=== PATIENT | female | born 1975 | race Caucasian/White ===

== ENCOUNTER 2021-08-01 13:49 | Inpatient (IN) | payer MEDICAID ==
[~2021-08-01] VITALS: Ht 154.9 cm; Wt 68.0 kg
[2021-08-01 15:09] LABS: EOSINOPHILS % 3.6 % (0.0-5.0); HEMATOCRIT. 21.9 % (36.0-48.0); HEMOGLOBIN. 7.1 g/dL (12.0-16.0); LYMPHOCYTES % 19.9 % (20.0-50.0); MEAN CORPUSCULAR HEMOGLOBIN 30.2 pg (28.0-32.0); MEAN CORPUSCULAR VOLUME 92.9 fL (81.0-99.0); MEAN PLATELET VOLUME 6.8 fl (7.4-10.4); MONOCYTES % 8.3 % (2.0-8.0); NEUTROPHILS % 67.2 % (40.0-76.0); PLATELET 285 x1000/uL (130-400); RED BLOOD CELL COUNT 2.36 mill/uL (4.2-5.4); RED CELL DISTRIBUTION WIDTH 17.2 % (11.6-14.6)
[2021-08-01 15:19] LABS: CHLORIDE 120 mEq/L (98-107)
[2021-08-01 15:29] LABS: ETHANOL BLOOD < 10 mg/dL
[2021-08-01] MEDS ORDERED: AMLODIPINE 10MG TABLET PO SCH (15:30)
[2021-08-01] MEDS: FUROSEMIDE 40MG/4ML VIAL IVP SCH (15:39)
[2021-08-01] MEDS ORDERED: LORAZEPAM 2MG/ML CPJ IV NR (15:45)
[2021-08-01] MEDS ORDERED: NIFEDIPINE XL 60MG TAB PO NR (18:15)
[2021-08-01] MEDS: LORAZEPAM 2MG/ML CPJ IV PRN (18:15)
[2021-08-01] MEDS ORDERED: EPOETIN ALFA 4000UNITS/ML VIAL SUBCUT NR (21:00)
[2021-08-01 22:25] VITALS: BP 148/107
[2021-08-01] MEDS: SEVELAMER CARBONATE 800 MG TABLET PO SCH (22:34)
[2021-08-01] MEDS: HYDROCODONE/ACETAMINOPHEN 5/325MG TABLET PO PRN (22:34)
[2021-08-01] MEDS: AMLODIPINE 10MG TABLET PO SCH (22:35)
[2021-08-02] VITALS: BP 120/83
[2021-08-02 00:28] LABS: EOSINOPHILS % 1.5 % (0.0-5.0); HEMATOCRIT. 22.8 % (36.0-48.0); HEMOGLOBIN. 7.5 g/dL (12.0-16.0); LYMPHOCYTES % 19.3 % (20.0-50.0); MONOCYTES % 7.7 % (2.0-8.0); NEUTROPHILS % 70.5 % (40.0-76.0); PLATELET 318 x1000/uL (130-400); RED BLOOD CELL COUNT 2.51 mill/uL (4.2-5.4); RED CELL DISTRIBUTION WIDTH 16.9 % (11.6-14.6)
[2021-08-02] MEDS ORDERED: IPRATROPIUM/ALBUTEROL 0.5-3(2.5)MG/3ML NEB HHN PRN (00:45)
[2021-08-02 01:29] LABS: BG BASE EXCESS -3.4 mmol/L (-2.0-2.0); BG CARBOXYHEMOGLOBIN 0.6 % (0.5-1.5); BG DEOXYHEMOGLOBIN 9.3 % (0.0-5.0); BG FRACTION INSPIRED OXYGEN 40; BG METHEMOGLOBIN 0.1 % (0.0-1.5); BG OXYGEN SATURATION 90.6 % (92.0-98.5); BG PCO2 41.3 mmHg (35.0-45.0); BG PH 7.345 (7.350-7.450); BG PO2 65.8 mmHg (75.0-100.0); BG SAMPLE SITE RIGHT RADIAL; BG TOTAL HEMOGLOBIN 8.4 g/dL (12.0-18.0); BG VENT MODE NASAL CANNULA
[2021-08-02 04:00] VITALS: BP 158/90
[2021-08-02] MEDS: SEVELAMER CARBONATE 800 MG TABLET PO SCH ×4 (05:55→22:06)
[2021-08-02 06:12] LABS: BASOPHILS % 0.8 % (0.0-2.0); EOSINOPHILS % 0.5 % (0.0-5.0); HEMATOCRIT. 23.6 % (36.0-48.0); HEMOGLOBIN. 7.6 g/dL (12.0-16.0); LYMPHOCYTES % 22.2 % (20.0-50.0); MEAN CORPUSCULAR HEMOGLOBIN 29.5 pg (28.0-32.0); MEAN CORPUSCULAR VOLUME 91.2 fL (81.0-99.0); MEAN PLATELET VOLUME 6.9 fl (7.4-10.4); MONOCYTES % 8.5 % (2.0-8.0); PLATELET 270 x1000/uL (130-400); RED BLOOD CELL COUNT 2.59 mill/uL (4.2-5.4); RED CELL DISTRIBUTION WIDTH 17.2 % (11.6-14.6)
[2021-08-02 06:45] LABS: PHOSPHORUS 4.9 mg/dL (2.5-4.9)
[2021-08-02] MEDS: LOSARTAN POTASSIUM 50 MG TABLET PO SCH (08:11)
[2021-08-02] MEDS: FOLIC ACID/VITAMIN B COMP W-C TABLET PO SCH (08:11)
[2021-08-02] MEDS: FUROSEMIDE 40MG/4ML VIAL IVP SCH (08:12)
[2021-08-02] MEDS: AMLODIPINE 10MG TABLET PO SCH (08:12)
[2021-08-02] MEDS: HYDROCODONE/ACETAMINOPHEN 5/325MG TABLET PO PRN ×3 (08:17→18:39)
[2021-08-02 08:22] VITALS: BP 167/108
[2021-08-02] MEDS: LORAZEPAM 2MG/ML CPJ IV PRN ×3 (08:23→20:36)
[2021-08-02] MEDS ORDERED: NIFEDIPINE XL 60MG TAB PO SCH (09:00)
[2021-08-02 12:00] VITALS: BP 134/84
[2021-08-02 15:42] LABS: TOTAL IRON BINDING CAPACITY 175 ug/dL (250-450)
[2021-08-02 16:00] VITALS: BP 129/77
[2021-08-02 20:00] VITALS: BP 153/83
[2021-08-02] MEDS: IRON SUCROSE COMPLEX 100 MG/5 ML ML IV SCH (22:06)
[2021-08-02] MEDS ORDERED: EPOETIN ALFA-EPBX 4,000 UNIT/ML VIAL SUBCUT NR (23:00)
[2021-08-03] VITALS: BP 153/83
[2021-08-03] MEDS: HYDROCODONE/ACETAMINOPHEN 5/325MG TABLET PO PRN ×4 (01:03→21:56)
[2021-08-03] MEDS: LORAZEPAM 2MG/ML CPJ IV PRN ×3 (03:24→19:01)
[2021-08-03 04:00] VITALS: BP 130/81
[2021-08-03] MEDS: SEVELAMER CARBONATE 800 MG TABLET PO SCH ×3 (06:06→21:59)
[2021-08-03 08:14] VITALS: BP 131/89
[2021-08-03] MEDS: FOLIC ACID/VITAMIN B COMP W-C TABLET PO SCH (08:37)
[2021-08-03] MEDS: NIFEDIPINE XL 60MG TAB PO SCH (08:38)
[2021-08-03] MEDS: FUROSEMIDE 40MG/4ML VIAL IVP SCH (08:38)
[2021-08-03] MEDS: LOSARTAN POTASSIUM 50 MG TABLET PO SCH (08:38)
[2021-08-03] MEDS ORDERED: LORAZEPAM 0.5MG TABLET PO NR (09:45)
[2021-08-03 12:00] VITALS: BP 157/102
[2021-08-03] MEDS ORDERED: CLONIDINE 0.1MG TABLET PO PRN ×2 (13:45→20:00)
[2021-08-03] MEDS ORDERED: DIPHENOXYLATE/ATROPINE 2.5/0.025MG TABLET PO PRN (15:00)
[2021-08-03] MEDS ORDERED: NALOXONE HCL 0.4MG/ML VIAL IV PRN (15:15)
[2021-08-03 16:00] VITALS: BP 164/71
[2021-08-03 16:27] LABS: BASOPHILS % 0.5 % (0.0-2.0); EOSINOPHILS % 4.1 % (0.0-5.0); HEMATOCRIT. 24.9 % (36.0-48.0); HEMOGLOBIN. 7.8 g/dL (12.0-16.0); MEAN CORPUSCULAR HEMOGLOBIN 29.4 pg (28.0-32.0); MEAN CORPUSCULAR VOLUME 94.2 fL (81.0-99.0); MEAN PLATELET VOLUME 7.5 fl (7.4-10.4); MONOCYTES % 5.9 % (2.0-8.0); NEUTROPHILS % 62.5 % (40.0-76.0); PLATELET 116 x1000/uL (130-400); RED BLOOD CELL COUNT 2.64 mill/uL (4.2-5.4); RED CELL DISTRIBUTION WIDTH 17.6 % (11.6-14.6)
[2021-08-03] MEDS ORDERED: LORAZEPAM 0.5MG TABLET PO PRN (19:30)
[2021-08-03] MEDS ORDERED: LORAZEPAM 1MG TABLET PO PRN (19:30)
[2021-08-03 20:00] VITALS: BP 163/94
[2021-08-03] MEDS ORDERED: EPOETIN ALFA-EPBX 4,000 UNIT/ML VIAL SUBCUT NR (21:00)
[2021-08-03] MEDS ORDERED: NON FORMULARY PATIENT HOME MED XX SCH (21:15)
[2021-08-03] MEDS ORDERED: QUET100T MT (21:16)
[2021-08-03] MEDS ORDERED: QUETIAPINE FUMARATE 50MG TABLET PO SCH (21:30)
[2021-08-03] MEDS: IRON SUCROSE COMPLEX 100 MG/5 ML ML IV SCH (21:58)
[2021-08-03] MEDS: LORAZEPAM 1MG TABLET PO PRN (23:06)
[2021-08-04] MEDS: LORAZEPAM 1MG TABLET PO PRN ×2 (03:49→08:30)
[2021-08-04] MEDS: SEVELAMER CARBONATE 800 MG TABLET PO SCH (06:11)
[2021-08-04] MEDS: NIFEDIPINE XL 60MG TAB PO SCH (07:38)
[2021-08-04] MEDS: FUROSEMIDE 40MG/4ML VIAL IVP SCH (07:38)
[2021-08-04] MEDS: LOSARTAN POTASSIUM 50 MG TABLET PO SCH (07:38)
[2021-08-04] MEDS: FOLIC ACID/VITAMIN B COMP W-C TABLET PO SCH (07:38)
[2021-08-04 08:06] VITALS: BP 181/120
[2021-08-04] MEDS: HYDROCODONE/ACETAMINOPHEN 5/325MG TABLET PO PRN (08:22)
[2021-08-04 11:53] VITALS: BP 168/95
[2021-08-04 12:00] VITALS: BP 154/80
== END 2021-08-04 14:56 | DRG 133 ==
LOC: EDBD 13:55 → ER 13:55 → 6WST 16:07 → EDBEDREQTM 16:09 → EDBEDREQ 16:09 → ENRESERV 19:25 → ER 21:40
PROVIDERS: ADMIT Internal Medicine; ATTEND Internal Medicine
PROC: 5A1D70Z Performance of Urinary Filtration, Intermittent, Less than 6 Hours Per Day (ICD-10-PCS; 2021-08-02)
PROC: 5A1D70Z Performance of Urinary Filtration, Intermittent, Less than 6 Hours Per Day (ICD-10-PCS; principal; 2021-08-04)
DX: J96.00 Acute respiratory failure, unspecified whether with hypoxia or hypercapnia (principal); E43 Unspecified severe protein-calorie malnutrition; I13.2 Hypertensive heart and chronic kidney disease with heart failure and with stage 5 chronic kidney disease, or end stage renal disease; E87.0 Hyperosmolality and hypernatremia; J81.1 Chronic pulmonary edema; N18.6 End stage renal disease; D63.1 Anemia in chronic kidney disease; E87.1 Hypo-osmolality and hyponatremia; J90 Pleural effusion, not elsewhere classified; I50.9 Heart failure, unspecified; E87.8 Other disorders of electrolyte and fluid balance, not elsewhere classified; Z20.822 Contact with and (suspected) exposure to COVID-19; F17.210 Nicotine dependence, cigarettes, uncomplicated; Z68.28 Body mass index [BMI] 28.0-28.9, adult; Z99.2 Dependence on renal dialysis; Z99.81 Dependence on supplemental oxygen; Z91.15 Patient's noncompliance with renal dialysis; Z91.19 Patient's noncompliance with other medical treatment and regimen; Z86.718 Personal history of other venous thrombosis and embolism
CPT/HCPCS: 36415; 36600; 71045; 80048; 80053; 80320; 82375; 82728; 82805; 83540; 83550; 83880; 84100; 84484; 85025; 87426; 93005; 93970; 94640; 99285; C9803; J0885; J1940; J2060; G0480